=== PATIENT | male | born 1980 | race Two or more races ===

== ENCOUNTER 2017-01-23 19:03 | Emergency (ER) | payer SELFPAY ==
[2017-01-23 19:10] VITALS: BP 145/91
[2017-01-23] MEDS ORDERED: DIPHTH,PERTUSS(ACELL),TET TOX 0.5 ML DISP.SYRIN. VAX IM ONE (19:30)
[2017-01-23] MEDS ORDERED: AMOX1TAB61 PO (19:36)
--- NOTE | 2017-01-23 19:36 | PHYS DOC ---
Past Medical History Past Medical History: No Pertinent History Past Surgical History: No Surgical History Alcohol Use: None Drug Use: None Adult General Chief Complaint Chief Complaint: ANIMAL BITE HPI HPI Patient is a 36 year old male presents the ED complaining of dog bite to left hand 5 days ago. 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 States he was concerned that his tetanus was not up-to-date and that everyone told him he needs get checked for rabies. States the wound is mostly healed. Denies pain, decreased range of motion, abdominal pain, fever, nausea/vomiting, dizziness, weakness, chest pain or shortness of breath. Animal control notified. Review of Systems Review of Systems Constitutional: Denies fever or chills [] Eyes: Denies change in visual acuity, redness, or eye pain [] HENT: Denies nasal congestion or sore throat [] Respiratory: Denies cough or shortness of breath [] Cardiovascular: No additional information not addressed in HPI [] GI: Denies abdominal pain, nausea, vomiting, bloody stools or diarrhea [] : Denies dysuria or hematuria [] Musculoskeletal: Denies back pain or joint pain [] Integument: Denies rash or skin lesions [] Neurologic: Denies headache, focal weakness or sensory changes [] Endocrine: Denies polyuria or polydipsia [] All other systems were reviewed and found to be within normal limits, except as documented in this note. Current Medications Current Medications Current Medications Medications (Trade) Dose Ordered Sig/Hugo Start Time Stop Time Status Last Admin Dose Admin Diphtheria/ Tetanus/Acell Pertussis (Boostrix) 0.5 ml ONCE ONCE 01/23/17 19:30 01/23/17 19:31 DC 01/23/17 19:39 0.5 ML Allergies Allergies Allergies Coded Allergies Type Severity Reaction Last Updated Verified No Known Drug Allergies 01/23/17 No Physical Exam Physical Exam Constitutional: Well developed, well nourished, no acute distress, non-toxic appearance. [] HENT: Normocephalic, atraumatic, bilateral external ears normal, oropharynx moist, no oral exudates, nose normal. [] Eyes: PERRLA, EOMI, conjunctiva normal, no discharge. [] Neck: Normal range of motion, no tenderness, supple, no stridor. [] Cardiovascular:Heart rate regular rhythm, no murmur [] Lungs & Thorax: Bilateral breath sounds clear to auscultation [] Abdomen: Bowel sounds normal, soft, no tenderness, no masses, no pulsatile masses. [] Skin: Warm, dry, no erythema, no rash. [] Back: No tenderness, no CVA tenderness. [] Extremities: DOG BITE PRIETO SCABBED OVER TO LEFT VOLAR HAND. HEALING WELL. C/D/ I. NO ERYTHEMA, WARMTH OR SIGNS OF INFECTION. No tenderness, no cyanosis, no clubbing, ROM intact, no edema. [] Neurologic: Alert and oriented X 3, normal motor function, normal sensory function, no focal deficits noted. [] Psychologic: Affect normal, judgement normal, mood normal. [] Current Patient Data Vital Signs Vital Signs Date Time Temp Pulse Resp B/P (MAP) Pulse Ox O2 Delivery O2 Flow Rate FiO2 01/23/17 19:10 97.9 85 16 98 Room Air 97.9 EKG EKG [] Radiology/Procedures Radiology/Procedures [] Course & Med Decision Making Course & Med Decision Making Pertinent Labs and Imaging studies reviewed. (See chart for details) []Wound healing well. No complications. Tetanus updated. Patient refused rabies vaccination. Patient spoke with animal control and provided clients address for animal control to investigate and observe/quarantine the dog. States he was told the dog is up to date on immunizations and rabies vaccination. Discussed symptomatic treatment. Discussed wound care. Will discharge with Augmentin. Discussed follow-up for wound reevaluation in 3 days and the importance of quarantining the dog/communicating with animal control. Discussed risks if patient does not, including disability or . Provided contact information/ education. Discussed reasons to return to the ED. Patient understands and agrees with plan. Dragon Disclaimer Dragon Disclaimer This electronic medical record was generated, in whole or in part, using a voice recognition dictation system. Departure Departure Impression: Primary Impression: Dog bite Disposition: 01 HOME, SELF-CARE Condition: STABLE Referrals: UNKNOWN PCP NAME (PCP) NICOLE ROACH MD Patient Instructions: Animal Bite Scripts Amoxicillin/Potassium Clav (AUGMENTIN [id number] TABLET) 1 Each Tablet 1 TAB PO BID, #20 TAB Prov: SONIA PALOMARES 01/23/17 SONIA PALOMARES Jan 23, 2017 19:36
== END 2017-01-23 20:06 | disposition home or self-care (01) ==
LOC: ER 19:03
DX: S61.452A Open bite of left hand, initial encounter (principal); W54.0XXA Bitten by dog, initial encounter; Y93.89 Activity, other specified; Y92.009 Unspecified place in unspecified non-institutional (private) residence as the place of occurrence of the external cause; Y99.8 Other external cause status
CPT/HCPCS: 90471; 90715; 99283-25